=== PATIENT | male | born 1995 | race Caucasian/White ===

== ENCOUNTER → 2020-07-31 10:03 | Outpatient (BNVA) | payer OTHER, SELFPAY | PROVIDERS: Visit Provider Internal Medicine | DX: S46.912A Strain of unspecified muscle, fascia and tendon at shoulder and upper arm level, left arm, initial encounter (principal); X50.1XXA Overexertion from prolonged static or awkward postures, initial encounter | CPT/HCPCS: 99202 ==

== ENCOUNTER → 2025-06-17 08:30 | Outpatient (REF) | payer OTHER, SELFPAY ==
--- NOTE | 2025-06-17 08:35 | CA_ITS ---
Acquisition Time: 2025-06-17 09:14:14 Total Exercise Time: 00:10:24 Test Indications: Screening for CAD Medications: ELIQUIS Protocol: ALISTAIR Max HR: 166 BPM 87% of Pred: 189 BPM Max BP: 164/70 mmHG Max Work Load: 12.3 METS Exercise stress test with exercise 10 mins 24 secs of Alistair Protocol, achieving 88% MPHR, without any reported symptoms of angina, without any arrythmias, with normotensive response to exercise. Without any EKG changes meeting criteria for ischemia. In recovery, pt continued to feel well. Test reviewed with Dr. Jacobs. Referred By: Declan Bravo Electronically Signed By: Jordi Lopez
--- OUTSIDE RECORDS SUMMARY | 2025-06-17 10:07 | XMS_ITS | Clinical Summary ---
Author Organization [facility] Address [address] [place] [address] Care Team Providers Care Diathermy Equipment Repairer Name Role Phone Chayo Otero Primary Care Provider [phone] Allergies No known active allergies Medications Eliquis 5 mg tablet Take 5 mg by mouth. 03/02/2025 Active Active Problems Problem Noted Date Diagnosed Date Pulmonary embolism 06/06/2025 Antiphospholipid antibody positive 06/06/2025 Overview (06/06/2025): Anti-phosphatidylserine/prothrombin immunoglobulin M (anti-PS/PT IgM) antibodies are a subtype of non-criteria antiphospholipid antibodies that target the phosphatidylserine/prothrombin complex. These antibodies are frequently detected in patients with antiphospholipid syndrome (APS) and are strongly associated with both arterial and venous thrombosis, as well as morbidity, independent of the classic criteria antibodies (lupus anticoagulant, anticardiolipin, and anti-?2 glycoprotein I). Anti-PS/PT IgM positivity is considered an independent risk factor for thrombotic events and loss in APS. High titers of anti-PS/PT IgM further increase the risk of clinical manifestations, and their detection may be particularly useful in patients with seronegative APS or when lupus anticoagulant testing is unavailable or inconclusive. Although anti-PS/PT IgM is not currently included in formal APS classification criteria, accumulating evidence supports its utility in risk stratification and clinical assessment of patients with suspected APS, especially in those with unexplained thrombosis or and negative conventional antibody profiles. Ramesh has a low titer IgM on single testing, will repeat testing at next visit Encounters Date Type Department Care Team Description 06/06/2025 Telephone [facility] [address] [address] Telephone Intake, Staff PAC Appt Request - Established 06/06/2025 Orders Only [facility] [address] [address] Ariela Garcia MD Pulmonary embolism, other, unspecified chronicity, unspecified whether acute cor pulmonale present (HCC) (Primary Dx) 06/06/2025 Results Follow-Up [facility] [address] [address] Ariela Garcia MD 05/30/2025 8:30 AM EDT Office Visit [facility] [address] [address] Shadia Mcmillan MD PhD Ariela Garcia MD Recurrent pulmonary embolism (HCC) (Primary Dx) from Last 3 Months Social History Tobacco Use Types Packs/Day Years Used Date Smoking Tobacco: Never Smokeless Tobacco: Never Tobacco Cessation:Counseling Given: Not Answered Sex and Gender Information Value Date Recorded Sex Assigned at Male 04/16/2025 1:03 PM EDT Legal Sex Male 3:33 PM EDT Gender Identity Male 05/23/2025 10:09 AM EDT Sexual Orientation Straight 05/23/2025 10 :09 AM EDT Last Filed Vital Signs Vital Sign Reading Time Taken Comments Blood Pressure 146/84 05/30/2025 8:17 AM EDT Pulse 86 05/30/2025 8:17 AM EDT Temperature 36.4 C (97.5 F) 05/30/2025 8:17 AM EDT Respiratory Rate 16 05/30/2025 8:17 AM EDT Oxygen Saturation 99% 05/30/2025 8:17 AM EDT Inhaled Oxygen Concentration - - Weight 106.6 kg (235 lb) 05/30/2025 8:17 AM EDT Height 178 cm (5' 10.08 ) 05/30/2025 8:17 AM EDT Body Mass Index 33.64 05/30/2025 8:17 AM EDT Plan of Treatment Health Maintenance Due Date Last Done Comments HIV Screening 1993 Hepatitis C Screening 1993 Varicella Vaccines (1 of 2 - 13+ 2-dose series) 2006 Hepatitis B Vaccines (1 of 3 - 19+ 3-dose series) 2012 Alcohol/Substance Use Screening 10/02/2024 Depression Screening and Follow-Up 10/02/2024 Social Drivers of Health Annual Screening 10/02/2024 COVID-19 Vaccine ( - season) 2025 10/19/2021, 11/11/2020, 10/14/2020 Influenza Vaccine (#1) 2025 , 09/16/2022, 08/10/2021, Additional history exists DTaP,Tdap,and Td Vaccines (2 - Td or Tdap) 09/16/2032 09/16/2022 RSV Vaccine (60+ years old and patients) (1 - 1-dose 75+ series) 2068 Pneumococcal Vaccine: Pediatric (0-5 Years) and At-Risk Patients (6-50 Years) Aged Out No longer eligible based on patient's age to complete this topic Procedures * Due to [place] state law, this organization might not be sharing negative HIV tests. Procedure Name Priority Date/Time Associated Diagnosis Comments CBC AUTO DIFFERENTIAL STAT 05/30/2025 9:38 AM EDT Recurrent pulmonary embolism (HCC) COMPREHENSIVE METABOLIC PANEL STAT 05/30/2025 9:38 AM EDT Recurrent pulmonary embolism (HCC) ANTIPHOSPHOLIPID ANTIBODY PANEL Routine 05/30/2025 9:38 AM EDT Recurrent pulmonary embolism (HCC) LACTATE DEHYDROGENASE STAT 05/30/2025 9:38 AM EDT Recurrent pulmonary embolism (HCC) RETICULOCYTES Routine 05/30/2025 9:38 AM EDT Recurrent pulmonary embolism (HCC) PAROXYSMAL NOCTURNAL HEMOGLOBINURIA (PNH) Routine 05/30/2025 9:38 AM EDT Recurrent pulmonary embolism (HCC) ECHO OUTSIDE FILMS Routine 03/28/2025 2: 42 PM EDT from Last 3 Months Results * Due to [place] state law, this organization might not be sharing negative HIV tests. * Flow Cytometry for Paroxysmal Nocturnal Hemoglobinuria (PNH) (05/30/2025 9:38 AM EDT) Pathologist Interpretation FLOW CYTOMETRY REPORT PERIPHERAL BLOOD: - No phenotypic evidence of paroxysmal nocturnal hemoglobinuria (PNH). COMMENT: Flow cytometric analysis does not show evidence of a PNH clone based upon the analysis of a variety of GPI-linked proteins on monocytes and neutrophils. These findings do not support a diagnosis of PNH. Clinical correlation is recommended. The lower limit of quantification of this assay (LLOQ) is 0.01% for neutrophils, 0.1% for monocytes and 0.005% for the red blood cells. A pauci-cellular sample may have reduced analytical sensitivity. FLOW RESULTS: Immunophenotypic analysis was performed using CD45, CD15, CD64, [id number] for lineage identification, and CD14, CD24, CD59 and fluorescent aerolysin (FLAER) for detection of GPI-deficiency. - Monocytes: No evidence of decreased or absent expression of CD14, or lack of binding of FLAER. - Neutrophils: No evidence of decreased or absent expression of CD24, or lack of binding of FLAER. . 06/04/2025 10:53 PM EDT [facility] ASR Disclaimer Some of these tests were developed and their performance characteristics determined by the Hematopathology Laboratory at [facility]. They have not been cleared or approved by the Food and Drug Administration. The FDA has determined that such clearance or approval is not necessary. This test is used for clinical purposes. It should not be regarded as investigational or for research. This laboratory is certified under the Clinical Laboratory Improvement Amendments of 1988 (CLIA-88) as qualified to perform high complexity clinical laboratory testing. 06/04/2025 10:53 PM EDT [facility] References MJ Dayna et al, Guidelines for the Diagnosis and Monitoring of Paroxysmal Nocturnal Hemoglobinuria and Related Disorders by Flow Cytometry. Cytometry Part B (Clinical Cytometry), 2010. 78B:211-230. Thompson Brito, Gino I, Laura ALDRIDGE, Susan O and Jocelyn Chinchilla ICCS/ ESCCA Consensus Guidelines to detect GPI-deficient cells in Paroxysmal Nocturnal Hemoglobinuria (PNH) and related Disorders Part 3 - Data Analysis, Reporting and Case Studies. Cytometry Part B 2018; 94B: 49-66. Laura ALDRIDGE, Jean-Paul Gibbs, Thompson Brito. Practical guidelines for the high-sensitivity detection and monitoring of paroxysmal nocturnal hemoglobinuria clones by flow cytometry. Cytometry Part B: Clinical Cytometry. 2011;82(4):195-208 . 06/04/2025 10:53 PM EDT [facility] Clinical History recurrent thrombosis 06/04/2025 10:53 PM EDT [facility] Flow Cytometry Markers CD14, CD15, CD24, CD45, CD59, CD64, [id number], FLAER (8 markers) The antibodies listed are the necessary markers for the study of Paroxsysmal Hemoglobinurea(PN H) disease/clones. 06/04/2025 10:53 PM EDT [facility] Number of Billable Markers 8 06/04/2025 10:53 PM EDT [facility] Blood Structure of peripheral vein / Unknown Venipuncture / Unknown 05/30/2025 9:38 AM EDT 05/30/2025 9:53 AM EDT Ariela Garcia MD LAB FLOW CYTOMETRY ORDERABL ES Final Result [facility] [address] [place] [address], * (ABNORMAL) Antiphospholipid Antibody Panel (05/30/2025 9:38 AM EDT) Interpretation see note 06/02/2025 11:34 PM EDT JUSTUS LOVETT (GUZMAN) Comment: The antiphospholipid antibody syndrome (APS) is a clinical-pathologic correlation that includes a clinical event (e.g. arterial or venous thrombosis, morbidity) and persistent positive anti- phospholipid antibodies (IgM, IgG Cardiolipin or b2GPI antibodies greater than the 99th percentile; or a lupus anticoagulant). International consensus guidelines for APS suggest waiting at least 12 weeks before retesting to confirm antibody persistence. The Systemic Lupus International Collaborating Clinics immunological classification criteria for systemic lupus erythema- tosus (SLE) include testing for isotype IgA, which has yet to be incorporated into APS criteria. Low level antiphospholipid antibodies may sometimes be detected in the setting of infection, drug therapy or aging. For additional information, please refer to http://Technisys.BlooBox/faq/SJC658 (This link is being provided for informational/ educational purposes only.) Beta2-Glycoprotein I (IgG) <2.0 <20.0 U/mL 06/02/2025 11:34 PM EDT [facility] CHANTILLMissy (GUZMAN) Comment: Value Interpretation ----- < 20.0 Antibody not detected > or = 20.0 Antibody detected Beta2-Glycoprotein I (IgA) <2.0 <20.0 U/mL 06/02/2025 11:34 PM EDT QUEST CHANTILLY (HINDS) Comment: Value Interpretation ----- < 20.0 Antibody not detected > or = 20.0 Antibody detected Beta2-Glycoprotein I (IgM) <2.0 <20.0 U/mL 06/02/2025 11:34 PM EDT [facility] CHANTILL[facility] (HINDS) Comment: Value Interpretation ----- < 20.0 Antibody not detected > or = 20.0 Antibody detected Phosphatidylserine/P rothrombin IgG <9 <=30 U 06/02/2025 11:34 PM EDT [facility]ST CHANTILLY (HINDS) Comment: For additional information, please refer to http://Technisys.FiveRuns/faq/IMI164 (This link is being provided for informational/ educational purposes only.) Phosphatidylserine/P rothrombin IgM 38(H) <=30 U 06/02/2025 11:34 PM EDT [facility] (HINDS) Comment: For additional information, please refer to http://Technisys.FiveRuns/faq/AHX067 (This link is being provided for informational/ educational purposes only.) Cardiolipin Ab IgA <2.0 <20.0 APL-U/mL 06/02/2025 11:34 PM EDT JUSTUS LOVETT (GUZMAN) Comment: Value Interpretation ----- < 20.0 Antibody not detected > or = 20.0 Antibody detected Cardiolipin Ab IgG <2.0 <20.0 GPL-U/mL 06/02/2025 11:34 PM EDT JUSTUS LOVETT (GUZMAN) Comment: Value Interpretation ----- < 20.0 Antibody not detected > or = 20.0 Antibody detected Cardiolipin Ab IgM <2.0 <20.0 MPL-U/mL 06/02/2025 11:34 PM EDT JUST[facility] LOVETT (GUZMAN) Comment: Value Interpretation ----- < 20.0 Antibody not detected > or = 20.0 Antibody detected Blood Structure of peripheral vein / Unknown Venipuncture / Unknown 05/30/2025 9:38 AM EDT 05/30/2025 9:56 AM EDT Narrative [facility] STEPHENSON - 06/02/2025 11:34 PM EDT [facility] Received Date: Ariela Garcia MD LAB BLOOD ORDERABLES Final Result [facility] [address] [place] [address] [address] Floor, [place] [address], JUSTUS BAILEY) [address] [place], [place] , [place] * CBC Auto Differential (Once) (05/30/2025 9:38 AM EDT) WBC 5.4 3.8 - 10.8 10*3/uL 05/30/2025 10:07 AM EDT [facility] RBC 5.31 4.20 - 5.80 10*6/uL 05/30/2025 10:07 AM EDT [facility] Hemoglobin 15.6 13.2 - 17.1 g/dL 05/30/2025 10:07 AM EDT [facility] Hematocrit 43.9 38.5 - 50.0 % 05/30/2025 10:07 AM EDT [facility] MCV 82.7 80.0 - 100.0 fL 05/30/2025 10:07 AM EDT [facility] MCH 29.4 27.0 - 33.0 pg 05/30/2025 10:07 AM EDT [facility] MCHC 35.5 32.0 - 36.0 g/dL 05/30/2025 10:07 AM EDT [facility] RDW 11.9 11.0 - 15.0 % 05/30/2025 10:07 AM EDT [facility] Platelets 299 140 - 400 10*3/uL 05/30/2025 10:07 AM EDT [facility] MPV 9.2 7.5 - 12.5 fL 05/30/2025 10:07 AM EDT [facility] Neutrophil % 58.0 % 05/30/2025 10:07 AM EDT [facility] Immature Grans % 0.2 0.0 - 0.9 % 05/30/2025 10:07 AM EDT [facility] Lymphocyte % 33.2 % 05/30/2025 10:07 AM EDT [facility] Monocyte % 6.0 % 05/30/2025 10:07 AM EDT [facility] Eosinophil % 1.9 % 05/30/2025 10:07 AM EDT [facility] Basophil % 0.7 % 05/30/2025 10:07 AM EDT [facility] [employer] [facility] Neutrophil # 3.11 1.50 - 7.80 10*3/uL 05/30/2025 10:07 AM EDT [facility] Immature Grans # <0.03 <=0.03 10*3/uL 05/30/2025 10:07 AM EDT [facility] [employer] [facility] Lymphocyte # 1.80 0.85 - 3.90 10*3/uL 05/30/2025 10:07 AM EDT [facility] [employer] [facility] Monocyte # 0.30 0.20 - 0.95 10*3/uL 05/30/2025 10:07 AM EDT [facility] [employer] [facility] Eosinophil # 0.10 0.02 - 0.50 10*3/uL 05/30/2025 10:07 AM EDT [facility]ENTERCrowdcareST[facility] [employer] [facility] Basophil # <0.03 0.00 - 0.20 10*3/uL 05/30/2025 10:07 AM EDT [facility]ERC[facility]careNJ [employer] [facility] nRBC % 0.0 /100 WBCs 05/30/2025 10:07 AM EDT [facility] [employer] [facility] nRBC # <0.01 <0.01 10*3/uL 05/30/2025 10:07 AM EDT [facility]Chinese Whis[facility]ST[facility] [employer] [facility] Total Neutrophil #, Preliminary 3.11 1.50 - 7.80 10*3/uL 05/30/2025 10:07 AM EDT [facility]ERCrowdcareNJ [employer] Blood Structure of peripheral vein / Unknown Venipuncture / Unknown 05/30/2025 9:38 AM EDT 05/30/2025 9:48 AM EDT us Ariela Garcia MD LAB BLOOD ORDERABLES Final Result [facility] [facility] [address] [place] [address], * Reticulocytes (05/30/2025 9:38 AM EDT) Pathologist [facility] Retic % 1.2 0.5 - 1.6 % 05/30/2025 10:07 AM EDT [facility] Retic # 0.06 0.03 - 0.09 10*6/uL 05/30/2025 10:07 AM EDT [facility]GACrowd[facility]NJ [employer] [facility] Blood Structure of peripheral vein / Unknown Venipuncture / Unknown 05/30/2025 9:38 AM EDT 05/30/2025 9:48 AM EDT Ariela Garcia MD LAB BLOOD ORDERABLES Final Result Performing Organization Address City/[facility]/ZIP Co de Phone Number [facility] [employer] [facility] [address] [place] [address] * Lactate Dehydrogenase (05/30/2025 9:38 AM EDT) Pathologist [facility] LDH 169 135 - 225 U/L 05/30/2025 10:31 AM EDT [facility] SolutionsGAViolet GreySELECT [facility] [employer] [facility] Blood Structure of peripheral vein / Unknown Venipuncture / Unknown 05/30/2025 9:38 AM EDT 05/30/2025 9:48 AM EDT Ariela Garcia MD LAB BLOOD ORDERABLES Final Result Performing Organization Address City/[facility]/ZIP Co de Phone Number [facility] [employer] [facility] [address] [place] [address] * (ABNORMAL) Comprehensive Metabolic Panel (Once) (05/30/2025 9:38 AM EDT) Pathologist [facility] NA 143 135 - 145 mmol/L 05/30/2025 10:30 AM EDT [facility] K 4.4 3.5 - 5.3 mmol/L 05/30/2025 10:30 AM EDT [employer] [facility] Cl 106 98 - 107 mmol/L 05/30/2025 10:30 AM EDT [facility]GACrowdcareNJ [employer] [facility] CO2 24 22 - 32 mmol/L 05/30/2025 10:30 AM EDT [facility] Anion Gap 13 5 - 15 05/30/2025 10:30 AM EDT [facility] Glucose 96 65 - 99 mg/dL 05/30/2025 10:30 AM EDT [facility] Creatinine 0.86 0.60 - 1.30 mg/dL 05/30/2025 10:30 AM EDT [facility] Calcium 9.8 8.6 - 10.5 mg/dL 05/30/2025 10:30 AM EDT [facility] Total Protein 8.0 6.0 - 8.0 g/dL 05/30/2025 10:30 AM Newman Inf[employer]T [facility] Albumin 4.7 3.5 - 5.2 g/dL 05/30/2025 10:30 AM ED [facility] Bilirubin, Total 0.5 0.2 - 1.2 mg/dL 05/30/2025 10:30 AM ED [facility] Alkaline Phosphatase 59 35 - 129 U/L 05/30/2025 10:30 AM ED [facility] AST 25 10 - 40 U/L 05/30/2025 10:30 AM [employer] [facility] ALT 24 10 - 40 U/L 05/30/2025 10:30 AM ED [facility] BUN 16 7 - 23 mg/dL 05/30/2025 10:30 AM ED [facility] eGFR >90 >=60 mL/min/1. 73m2 05/30/2025 10:30 AM [employer] [facility] Comment:The estimated glomer ular filtration rate (eGFR) is calculated using a new formula developed by the NKF-ASN task force to eliminate race-based correction factors. The new formula uses serum/plasma creatinine, age, and gender to determine eGFR. A value below 60mls/min might indicate kidney disease and will be flagged. For additional information, see Harley et al, Am J Kidney Dis. 2021;79(2):268- 288, A Unifying Approach for GFR estimation: Recommendations of the NKF-ASN Task Force on Reassessing the Inclusion of Race in Diagnosing Kidney Disease . Globulin, Total 3.3 2.1 - 4.2 g/dL 05/30/2025 10:30 AM EDT [facility] A/G Ratio 1.4(L) 1.5 - 3.0 05/30/2025 10:30 AM EDT [facility]ERCrowdcareNJ [employer] Blood Structure of peripheral vein / Unknown Venipuncture / Unknown 05/30/2025 9:38 AM EDT 05/30/2025 9:56 AM EDT us Ariela Garcia MD LAB BLOOD ORDERABLES Final Result Performing Organization Address City/State/[facility] Co de Phone Number [facility] [address] [place] [address], [place] * [employer] Outside [employer] (03/28/2025 2:42 PM EDT) Narrative 03/28/2025 2:42 PM EDT This order has been auto-finalized and does not contain a result. us External Radiology CV ECHO PROCEDURES Final Resu lt from Last 3 Months Insurance [facility] Care Teams Diathermy Equipment Repairer Relationship Specialty Start Date End Date Chayo Otero [address] [place] [address] PCP - General Physician Transcribing Machine Mechanic 03/13/25
--- OUTSIDE RECORDS SUMMARY | 2025-06-17 10:07 | XMS_ITS | Clinical Summary ---
Author Organization [facility] Address [address] [id number] Phone Care Team Providers Care Store Operations Associate Name Role Phone Pcp, Unknown Primary Care Provider Unavailabl e Social History Tobacco Use Types Packs/Day Years Used Date Smoking Tobacco: Never Assessed Education Answer Date Recorded Are you interested in more education? Not on jerod e 10/03/2023 Are you concerned about learning? Not on file 10/03/2023 No 10/03/2023 No 10/03/2023 Digital Access Answer Date Recorded No 10/03/2023 No 10/03/2023 Reliable internet access at home? Not on file 10/03/2023 Device with a working camera? Not on file Sex and Gender Information Value Date Recorded Sex Assigned at Not on file Legal Sex Male 8:56 PM EDT Gender Identity Not on file Sexual Orientation Not on file Plan of Treatment Not on file Medical Devices Not on file Insurance O O O HMO Care Teams Store Operations Associate Relationship Specialty Start Date End Date Pcp, Unknown PCP - General 10/03/23 Additional Source Comments The information contained in this document represents components of the legal health record. It is not the complete legal health record.[facility]
--- OUTSIDE RECORDS SUMMARY | 2025-06-17 10:07 | XMS_ITS | Encounter Summary ---
Author Organization [facility] Address [address] [place] [address] Care Team Providers Care Controls Project Engineer Name Role Phone Chayo Otero Primary Care Provider [phone] Reason for Visit * Reason Onset Date Comments PAC Appt Request - Established 06/06/2025 Encounter Details Date Type Department Care Team (Late st Contact Info) Description 06/06/2025 Telephone [facility] [address] [place] [address] Telephone Intake, Staff PAC Appt Request - Established Social History Tobacco Use Types Packs/Day Years Used Date Smoking Tobacco: Never Smokeless Tobacco: Never Sex and Gender Information Value Date Recorded Sex Assigned at Male 04/16/2025 1:03 PM EDT Legal Sex Male 3:33 PM EDT Gender Identity Male 05/23/2025 10:09 AM EDT Sexual Orientation Straight 05/23/2025 10 :09 AM EDT documented as of this encounter Miscellaneous Notes * Telephone Encounter - Tanisha العلي - 06/06/2025 10:09 AM EDT Pt of Dr. Garcia Dx: PE The pt was scheduled for a follow up with Dr. Mcmillan for 11/07. He had decided he would like to continue seeing Dr. Garcia instead. Unable to schedule with this provider via the DT. Best call back #: [phone] Thank you documented in this encounter Plan of Treatment Not on file documented as of this encounter Visit Diagnoses Not on filedocumented in this encounter Care Teams Controls Project Engineer Relationship Specialty Start Date End Date Chayo Otero [address] [place] [address] PCP - General Physician Route Sales Delivery Driver 03/13/25 documented as of this encounter
--- OUTSIDE RECORDS SUMMARY | 2025-06-17 10:07 | XMS_ITS | Encounter Summary ---
Author Organization [facility] Address [address] [place] [address] Care Team Providers Care Analytics Intern Name Role Phone Chayo Otero Primary Care Provider [phone] Encounter Details Date Type Department Care Team (Late st Contact Info) Description 06/06/2025 Results Follow-Up [facility] [address] [place] [address] Ariela Garcia MD [address] [place] [address] Social History Tobacco Use Types Packs/Day Years Used Date Smoking Tobacco: Never Smokeless Tobacco: Never Sex and Gender Information Value Date Recorded Sex Assigned at Male 04/16/2025 1:03 PM EDT Legal Sex Male 3:33 PM EDT Gender Identity Male 05/23/2025 10:09 AM EDT Sexual Orientation Straight 05/23/2025 10 :09 AM EDT documented as of this encounter Plan of Treatment Not on file documented as of this encounter Visit Diagnoses Not on filedocumented in this encounter Care Teams Analytics Intern Relationship Specialty Start Date End Date Chayo Otero [address] [place] [address] PCP - General Physician [employer] Operator 03/13/25 documented as of this encounter
== END ==
LOC: HO.CARD 08:30
PROVIDERS: Visit Provider Internal Medicine
DX: I26.99 Other pulmonary embolism without acute cor pulmonale (principal); R06.02 Shortness of breath; Z79.01 Long term (current) use of anticoagulants
CPT/HCPCS: 93017

== ENCOUNTER → 2025-06-17 08:35 | Outpatient (BNV) | payer OTHER, SELFPAY | DX: I25.10 Atherosclerotic heart disease of native coronary artery without angina pectoris (principal); I26.99 Other pulmonary embolism without acute cor pulmonale | CPT/HCPCS: 93016; 93018 ==